=== PATIENT | female | born 1980 | race Caucasian/White ===

== ENCOUNTER 2022-01-05 13:15 | Emergency (ER) | payer MEDICAID ==
[~2022-01-05] VITALS: Ht 167.6 cm; Wt 72.6 kg
[2022-01-05 14:01] VITALS: BP_SYST 109
[2022-01-05] MEDS ORDERED: NIRM1TAB PO (14:10)
[2022-01-05] MEDS ORDERED: BEBTELOVIMAB (EUA) 175 MG/2 ML VIAL IV ONE (14:15)
[2022-01-05] MEDS ORDERED: NACL 0.9% 1,000 ML IV ONE (14:15)
--- NOTE | 2022-01-05 14:20 | NUR ---
RECEIVED PT AAOX4. RESP E/U. UNPRODUCTIVE COUGH, ON R/A. NSR. ABDOMEN SOFT, NONTENDER, NONDISTENDED. DENIES N/V/C /C. PT COVID POSITIVE, TEMP 100.4F. COOLING MEASURE IN PLACE. SIDERAILS UP X2. BED IN LOW POSITION.
--- NOTE | 2022-01-05 14:40 | NUR ---
DR. FERREIRA MET WITH AND ASSESSED PT.
--- NOTE | 2022-01-05 15:29 | NUR ---
DR. GOMEZ MADE AWARE PT IS PVC EVERY OTHER BEAT AND INTEMITENT. PAGED DR. DE GUZMAN AND MADE HIM AWARE HE STATED TO CONTACT DR. Giovani DE GUZMAN AND MAKE HIM AWARE. MAG SULFATE IV INFUSING AT THIS TIME.
[2022-01-05 15:49] LABS: BILIRUBIN,URINE NEGATIVE (NEGATIVE); CLARITY/URINE CLEAR (CLEAR); COLOR,URINE YELLOW (YELLOW); GLUCOSE,URINE NEGATIVE (NEGATIVE); KETONES,URINE 3+ (NEGATIVE); LEUKOCYTE ESTERASE ,URINE NEGATIVE (NEGATIVE); NITRITE, URINE NEGATIVE (NEGATIVE); PROTEIN URINE NEGATIVE (NEGATIVE); UROBILINOGEN,URINE 0.2 (0.2-1.0)
[2022-01-05 15:58] LABS: BLOOD, URINE TRACE (NEGATIVE)
[2022-01-05 15:59] LABS: BACTERIA,URINE FEW /HPF (None Seen); MUCUS,URINE None Seen /LPF (None Seen); RBC,URINE 0-3 /HPF (0-3); WBC,URINE NONE SEEN /HPF (0-3)
[2022-01-05] MEDS ORDERED: ONDANSETRON 4 MG ODT TAB PO ONE (16:15)
[2022-01-05] MEDS ORDERED: ACETAMINOPHEN 500 MG TABLET PO ONE (16:15)
[2022-01-05] MEDS ORDERED: KETOROLAC TROMETHAMINE 15 MG VIAL IM ONE (16:15)
[2022-01-05 17:39] LABS: BASOPHILS % (AUTO) 0.9 % (0.0-2.0); HEMATOCRIT 35.7 % (36-48); LYMPHOCYTES # (AUTO) 0.9 K/uL (1.0-5.5); LYMPHOCYTES % (AUTO) 25.4 % (20.5-51.5); MEAN CORPUSCULAR HEMOGLOBIN 29 pg (27-31); MEAN CORPUSCULAR HGB CONC 34 % (32-36); MEAN CORPUSCULAR VOLUME 88 fL (79.0-98.0); MONOCYTES # (AUTO) 0.5 K/uL (0.0-1.0); MONOCYTES % (AUTO) 14.2 % (1.7-9.3); NEUTROPHILS % (AUTO) 59.5 % (40.0-70.0); PLATELET COUNT (AUTO) 146 K/uL (130-430); RED BLOOD CELL COUNT(AUTO) 4.07 MIL/uL (4.2-6.2); RED CELL DISTRIBUTION WIDTH 14.1 % (9.0-15.0); WHITE BLOOD COUNT (AUTO) 3.3 K/uL (4.8-10.8)
[2022-01-05 18:01] LABS: CALCIUM 8.7 mg/dL (8.4-11.0); CREATININE 0.67 mg/dL (0.55-1.30); POTASSIUM 3.3 mmol/L (3.5-5.1)
[2022-01-05 18:06] LABS: TOTAL BILIRUBIN 0.2 mg/dL (0.0-1.0)
--- NOTE | 2022-01-05 18:16 | NUR ---
Patient given written and verbal discharge instructions and verbalizes understanding. ER MD discussed with patient the results and treatment provided. Patient in stable condition. ID arm band removed. Rx of given. Patient educated on pain management and to follow up with PMD. Pain Scale . TYLENOL PO GIVEN. Opportunity for questions provided and answered. Medication side effect fact sheet provided.
[2022-01-05 18:23] VITALS: BP_SYST 128
== END 2022-01-05 18:16 | disposition home or self-care (01) ==
LOC: SED 13:15
DX: U07.1 COVID-19 (principal); R50.9 Fever, unspecified; R05.9 Cough, unspecified; R11.0 Nausea; Z79.899 Other long term (current) drug therapy
CPT/HCPCS: 99284; 96374; 71045; 80053; 81000; 85025; 87040; 36415; 83605; Q0162; J1885